=== PATIENT | male | born 1945 | race Caucasian/White ===

== ENCOUNTER → 2020-05-31 | Day surgery (SDC) | payer MEDICARE, OTHER ==
[~2020-05-31] MED LIST: GOLO; PREVACID30 M1 PO; PRILOSEC20 MG PO; SUPER BETA
== END | disposition home or self-care (01) ==
LOC: FAS 12:20
DX: H26.493 Other secondary cataract, bilateral (principal); M19.90 Unspecified osteoarthritis, unspecified site; Z79.899 Other long term (current) drug therapy; Z98.41 Cataract extraction status, right eye; Z98.42 Cataract extraction status, left eye; Z96.1 Presence of intraocular lens

== ENCOUNTER → 2020-07-26 | Day surgery (SDC) | payer MEDICARE, OTHER | END | disposition home or self-care (01) | LOC: FAS 06-28 13:00 | DX: H26.491 Other secondary cataract, right eye (principal); Z88.0 Allergy status to penicillin ==